=== PATIENT | male | born 1995 | race African-American/Black ===

== ENCOUNTER 2017-10-17 23:05 | Emergency (ER) | payer MEDICAID ==
[~2017-10-17] VITALS: Ht 167.6 cm; Wt 69.0 kg
[2017-10-18] MEDS ORDERED: TETANUS, DIPHTHERIA, PERTUSSIS VAC/PF 0.5ML (>7YR OLD) IM ONE (00:15)
[2017-10-18] MEDS ORDERED: LIDOCAINE HCL 1% 20ML VIAL (Pyxis) INJ MC ONE (00:15)
[2017-10-18] MEDS ORDERED: KETOROLAC 30MG/ML VIAL IM ONE (00:15)
[2017-10-18] MEDS ORDERED: HYDROCODONE/ACETAMINOPHEN 5/325MG TABLET PO ONE (00:15)
[2017-10-18] MEDS ORDERED: BACITRACIN ZINC OINT UDPKT TOP ONE (00:15)
[2017-10-18 02:02] VITALS: BP 132/78
== END 2017-10-18 02:03 | disposition home or self-care (01) ==
LOC: ER 23:06
DX: S51.011A Laceration without foreign body of right elbow, initial encounter (principal); F90.9 Attention-deficit hyperactivity disorder, unspecified type; W26.0XXA Contact with knife, initial encounter; Y93.89 Activity, other specified; Y92.488 Other paved roadways as the place of occurrence of the external cause
CPT/HCPCS: 12001; 73080; 90471; 90715; 96372; 99284; J1885; J3490; Z7610

== ENCOUNTER 2017-10-20 15:58 | Emergency (ER) | payer MEDICAID ==
[~2017-10-20] VITALS: Ht 175.3 cm; Wt 114.0 kg
[2017-10-20 17:40] VITALS: BP 131/81
[2017-10-20] MEDS ORDERED: IBUPROFEN 600MG TABLET PO ONE (17:45)
== END 2017-10-20 17:45 | disposition home or self-care (01) ==
LOC: ER 15:58
DX: Z48.00 Encounter for change or removal of nonsurgical wound dressing (principal)
CPT/HCPCS: 99282

== ENCOUNTER 2017-11-05 18:41 | Emergency (ER) | payer MEDICAID ==
[~2017-11-05] VITALS: Ht 175.3 cm; Wt 109.0 kg
[2017-11-05 19:39] VITALS: BP 124/79
== END 2017-11-05 22:07 | disposition left against medical advice (07) ==
LOC: ER 18:41
DX: Z48.02 Encounter for removal of sutures (principal); Z53.21 Procedure and treatment not carried out due to patient leaving prior to being seen by health care provider